=== PATIENT | female | born 1975 ===

== ENCOUNTER 2018-06-25 12:20 | Emergency (ER) | payer MEDICAID, OTHER ==
[2018-06-25 12:30] VITALS: TEMP 98
[2018-06-25 14:38] LABS: SQUAMOUS EPITHIAL 2 /hpf (0-5); URINE BILIRUBIN NEGATIVE (NEGATIVE); URINE BLOOD NEGATIVE (NEGATIVE); URINE CLARITY Clear (Clear); URINE COLOR Yellow (YELLOW); URINE GLUCOSE (UA) NORMAL (Normal); URINE LEUKOCYTE ESTERASE NEG Leu/uL (Negative); URINE PROTEIN NEGATIVE (NEGATIVE); URINE UROBILINOGEN NORMAL mg/dL (0.2-1.0)
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
[2018-06-25] MEDS ORDERED: cefTRIAXone (Rocephin) 250 mg Inj IM STA (15:04)
[2018-06-25 15:30] VITALS: RESP 18
[2018-06-25 15:38] LABS: BASO # 0.1 K/uL (0.0-0.2); BASO % 1.2 % (0.0-2.0); EOS % 0.7 % (0.0-4.0); HEMOGLOBIN 13.1 g/dL (11.0-16.0); MEAN CELL VOLUME 92.4 fL (81.0-99.0); MEAN CORPUSCULAR HEMOGLOBIN 30.1 pg (27.0-31.0); MEAN CORPUSCULAR HGB CONC 32.6 g/dL (33.0-37.0); MEAN PLATELET VOLUME 8.5 fL (7.2-11.7); MONO # 0.5 K/uL (0.0-0.8); MONO % 9.1 % (0.0-10.0); NEUT # 1.7 K/uL (1.8-7.0); RBC 4.33 Mil/uL (3.80-5.20); RED CELL DISTRIBUTION WIDTH 15.1 % (11.5-14.5); WHITE BLOOD COUNT 5.3 K/uL (4.8-10.8)
[2018-06-25 15:53] LABS: ALB/GLOB RATIO 1.5 (1.0-2.1); ALBUMIN 4.3 g/dL (3.5-5.0); ALT/SGPT 14 U/L (9-52); AST/SGOT 24 U/L (14-36); BLOOD UREA NITROGEN 7 mg/dL (7-17); CALCIUM 8.9 mg/dl (8.6-10.4); GFR NON-AFRICAN AMERICAN > 60
--- NOTE | 2018-06-25 17:50 | US ---
Date of service: 06/25/2018 HISTORY: right pelvic pain COMPARISON: None available. TECHNIQUE: Real-time transabdominal pelvic ultrasound was performed. In addition a transvaginal pelvic ultrasound was necessary to better depict pelvic anatomy. FINDINGS: UTERUS: Measures 8.8 x 4.3 x 5.2 cm. Anteverted. Myometrial calcifications measuring up to 2 mm. ENDOMETRIUM: Measures 5 mm. CERVIX: No cervical abnormality identified. RIGHT OVARY: Measures 2.5 x 1.6 x 2.5 cm. Blood flow is demonstrated. Complex appearing cyst measures 1.6 x 1.2 x 1.5 cm, possibly corpus luteum. Tiny ovarian calcifications. LEFT OVARY: Measures 2.6 x 1.3 x 2.4 cm. Blood flow is demonstrated. Complex follicle/cyst measures approximately 1.1 x 0.8 x 1.1 cm. Tiny ovarian calcifications. FREE FLUID: Small pelvic free fluid including cul-de-sac and bilateral adnexa. OTHER FINDINGS: None. IMPRESSION: Small pelvic free fluid seen in the cul-de-sac and bilateral adnexal regions. Complex right ovarian cyst/corpus luteum measures approximately 1.6 x 1.2 x 1.5 cm. Tiny myometrial and ovarian calcifications, nonspecific. This examination is predicated on a negative test.
[2018-06-25 18:40] VITALS: BP 146/101; PULSE 82
[2018-06-25 19:03] VITALS: O2SAT 100
== END 2018-06-25 19:46 | disposition home or self-care (01) ==
LOC: C.ER 12:20
DX: T76.21XA Adult sexual abuse, suspected, initial encounter (principal); N83.209 Unspecified ovarian cyst, unspecified side
CPT/HCPCS: 76830; 76856; 80053; 81001; 81025; 85025; 86592; 86706; 87086; 87389; 87491; 87591; 96372; 99284; J0696